=== PATIENT | male | born 1970 | race Caucasian/White ===

== ENCOUNTER → 2020-08-20 14:34 | Outpatient (CLI) | payer BC, SELFPAY ==
--- NOTE | ~2020-08-20 | XR_ITS ---
EXAMINATION: XR hand LT 2V DATE: 08/20/2020 14:47 INDICATION: Cellulitis with erythema and posterior left hand pain. TECHNIQUE: Posteroanterior and lateral views of the left hand were obtained. COMPARISON: None. FINDINGS: Alignment is normal. No fracture. Joint spaces are normal. No cortical erosions or periosteal reactio n. Nonspecific soft tissue swelling which appears centered dorsal to the head of the third metacarpal . No soft tissue gas or radiopaque foreign bodies. IMPRESSION: 1. No osseous abnormality. Reviewed, dictated and finalized at location B. IMPRESSION: 1. No osseous abnormality.
== END ==
PROVIDERS: PCP Nurse Practitioner Family; Visit Provider Nurse Practitioner Family
DX: L03.119 Cellulitis of unspecified part of limb (principal)
CPT/HCPCS: 73120

== ENCOUNTER 2023-04-24 00:51 | Day surgery (SDC) | payer BC, SELFPAY ==
[2023-04-10 10:17] VITALS: BMI 39.2
--- NOTE | 2023-04-21 10:18 | SUR.PREOP ---
Patient called regarding upcoming procedure. Reviewed preop instructions, appointment times, and procedure prep.
--- NOTE | 2023-04-23 20:21 | PM.HPGS ---
History of Present Illness History of Present Illness Consent: Risks, benefits, and alternatives have been discussed and questions answered. Patient agrees to proceed with procedure. Chief complaint: neoplasm screening Narrative: Luis Antonio Us is a 53 year old male who is referred for colon cancer screening. Review of Systems Review of Systems: All systems reviewed & are unremarkable except as noted in HPI and below PMFSH Past Medical History Medical History Asthma BMI 37.0-37.9, adult BMI 38.0-38.9,adult Cellulitis and abscess of leg Dietary counseling and surveillance (02/08/18) Eczema Erectile dysfunction Nocturia Rash Surgical History Surgical History No history of previous surgery Family History Family History Father Hypertension Family history of diabetes mellitus in first degree relative Family history of coronary artery disease Tobacco abuse Mother No problems noted. Sibling No problems noted. Social History Social History Smoking status: Never smoker Second hand tobacco smoke exposure: Yes Alcohol intake: current Substance use: never Substance use type: does not use Lack of Transportation: No Lack of Food: Never True Current Housing: I Have Housing Concerned About Future Housing: No Difficulty Paying Gas/Electric Bills: No Difficulty Paying for Meds: No Currently Unemployed: No Education: Trade/Vocational Certificate Difficulty w/ Childcare or Family Care: No Living arrangements: other Additional living arrangements comments: with sp Occupation/Education: occupation Additional occupation/education comments: [employer] Gender identity (if verbalized by the patient): Male Meds Home Medications and Allergies Home Medications Medication Instructions Recorded Confirmed Type albuterol sulfate 90 mcg/actuation 1 puff inhalation Q4H PRN sob 08/12/20 04/24/23 History aerosol inhaler (ProAir HFA) mometasone-formoterol HFA 100 2 puff inhalation Q12H 08/12/20 04/24/23 History mcg-5 mcg/actuation aerosol inhaler (Dulera) dupilumab 300 mg/2 mL subcutaneous 300 mg subcut .every 2 weeks 12/13/22 04/24/23 History pen injector (Dupixent) epinephrine 0.3 mg/0.3 mL 0.3 mg IM ONCE 12/13/22 04/24/23 History injection, auto-injector latanoprost 0.005 % eye drops 1 drp EACH EYE QPM 12/13/22 04/24/23 History lifitegrast 5 % eye drops in a 1 drp EACH EYE BID 12/13/22 04/24/23 History dropperette (Xiidra) Allergies Allergy/AdvReac Type Severity Reaction Status Date / Time sulfamethizole Allergy Unknown Hives Verified 04/24/23 10:42 trimethoprim Allergy Unknown Hives Verified 04/24/23 10:42 Exam Const: General: alert Orientation/consciousness: patient oriented x3 Resp: Auscultation: clear to auscultation bilaterally Cardio: Rhythm: regular rhythm GI: GI Palp: Yes Soft to palpation and No Tenderness to palpation present (GI) Neuro: General: patient oriented x3 Assessment and Plan Assessment and plan (1) Colon cancer screening: Code(s): Z12.11 - Encounter for screening for malignant neoplasm of colon Status: Acute Assessment and Plan: Colonoscopy with possible biopsy or polypectomy or cautery or injection of substances.
[2023-04-24 10:35] VITALS: BP 144/91; PULSE 91; RESP 16; TEMP 36.5; O2SAT 99; BMI 39.5
--- NOTE | 2023-04-24 10:55 | WPDANESEPPF ---
Anes - Initial Pre Proc Eval Procedure: Operation Date: 04/24/23 11:30 Proposed Procedures p Screening Colonoscopy - Amadou Carnes MD Date/Time: 04/24/23 10:55 Surgeon: Amadou Carnes MD Pre Op Diagnosis: neoplasm screening Patient Data Age: 53 Gender: M Height: 1.7 m Weight: 114.5 kg Last Vital Signs Temp 97.7 F 04/24/23 10:35 Pulse 91 04/24/23 10:35 Resp 16 04/24/23 10:35 BP 144/91 H 04/24/23 10:35 Pulse Ox 99 04/24/23 10:35 O2 Del Method Room Air 04/24/23 10:35 Allergies Allergy/AdvReac Type Severity Reaction Status Date / Time sulfamethizole Allergy Unknown Hives Verified 04/24/23 10:42 trimethoprim Allergy Unknown Hives Verified 04/24/23 10:42 Home Medications Medication Instructions Recorded Confirmed Type albuterol sulfate 90 mcg/actuation 1 puff inhalation Q4H PRN sob 08/12/20 04/24/23 History aerosol inhaler (ProAir HFA) mometasone-formoterol HFA 100 2 puff inhalation Q12H 08/12/20 04/24/23 History mcg-5 mcg/actuation aerosol inhaler (Dulera) dupilumab 300 mg/2 mL subcutaneous 300 mg subcut .every 2 weeks 12/13/22 04/24/23 History pen injector (Dupixent) epinephrine 0.3 mg/0.3 mL 0.3 mg IM ONCE 12/13/22 04/24/23 History injection, auto-injector latanoprost 0.005 % eye drops 1 drp EACH EYE QPM 12/13/22 04/24/23 History lifitegrast 5 % eye drops in a 1 drp EACH EYE BID 12/13/22 04/24/23 History dropperette (Xiidra) Patient hx anesthesia problems: none Family hx anesthesia problems: none Results Review: All pre-operative results and documents have been reviewed as part of the pre-operative evaluation. [facility] Past Medical History Medical History (Updated 04/23/23 @ 20:21 by Amadou Carnes MD) Asthma BMI 37.0-37.9, adult BMI 38.0-38.9,adult Cellulitis and abscess of leg Dietary counseling and surveillance (02/08/18) Eczema Erectile dysfunction Nocturia Rash Surgical History Surgical History No history of previous surgery Family History Family History Father Hypertension Family history of diabetes mellitus in first degree relative Family history of coronary artery disease Tobacco abuse Mother No problems noted. Sibling No problems noted. Social History Social History Smoking status: Never smoker Second hand tobacco smoke exposure: Yes Alcohol intake: current Substance use: never Substance use type: does not use Lack of Transportation: No Lack of Food: Never True Current Housing: I Have Housing Concerned About Future Housing: No Difficulty Paying Gas/Electric Bills: No Difficulty Paying for Meds: No Currently Unemployed: No Education: Trade/Vocational Certificate Difficulty w/ Childcare or Family Care: No Living arrangements: other Additional living arrangements comments: with sp Occupation/Education: occupation Additional occupation/education comments: [employer] Gender identity (if verbalized by the patient): Male Anes - Eval Final PreProcedure Day of Procedure 04/24/23 10:55 Patient weight: morbidly obese Airway: Mallampati scale class II ASA classification: III Anesthesia type and monitoring: general GIVS and standard monitoring Results Review: All pre-operative results and documents have been reviewed as part of the pre-operative evaluation. Informed Consent: The patient's anesthetic plan and its attendant risks and benefits were discussed with the patient/family/POA. Questions were solicited and answers provided to the satisfaction of the patient/family/POA.
[2023-04-24] MEDS: LACTATED RINGERS 1,000 ML 150 ML IV CONT (10:56)
[2023-04-24 11:48] VITALS: BP 116/97; PULSE 77; RESP 17; O2SAT 97
[2023-04-24 11:58] VITALS: BP 125/79; PULSE 67; RESP 17; O2SAT 98
[2023-04-24 12:08] VITALS: BP 122/74; PULSE 67; RESP 20; O2SAT 98
== END 2023-04-24 12:10 | disposition home or self-care (01) ==
PROVIDERS: PCP Family Medicine; Visit Provider Internal Medicine Gastroenterology
PROC: 0DJD8ZZ Inspection of Lower Intestinal Tract, Via Natural or Artificial Opening Endoscopic (ICD-10-PCS; CPT 45378; principal; 2023-04-24 11:30)
DX: Z12.11 Encounter for screening for malignant neoplasm of colon (principal); J45.909 Unspecified asthma, uncomplicated; E66.01 Morbid (severe) obesity due to excess calories; Z68.39 Body mass index [BMI] 39.0-39.9, adult; Z79.51 Long term (current) use of inhaled steroids; Z79.85 Long-term (current) use of injectable non-insulin antidiabetic drugs; Z82.49 Family history of ischemic heart disease and other diseases of the circulatory system
CPT/HCPCS: 45378; J2704; J7120

== ENCOUNTER → 2023-07-13 08:47 | Outpatient (CLI) | payer BC, SELFPAY ==
--- NOTE | ~2023-07-13 | XR_ITS ---
EXAMINATION: XR elbow LT min 3V DATE: 07/13/2023 09:17 INDICATION: Left elbow pain TECHNIQUE: Anteroposterior, two oblique and lateral views of the left elbow were obtained. COMPARISON: None. FINDINGS: Alignment is normal. No fracture or joint effusion. Mild osteoarthritis at the left elbow mild nonuni form joint space narrowing at the ulnotrochlear articulation. Soft tissues are unremarkable. IMPRESSION: 1. Mild osteoarthritis at the left elbow. Reviewed, dictated and finalized at location A. WORK[employer] FOREM[employer]
--- NOTE | ~2023-07-13 | XR_ITS ---
EXAMINATION: XR shoulder LT min 2V DATE: 07/13/2023 09:17 INDICATION: Left shoulder pain TECHNIQUE: AP internally and externally rotated, AP oblique externally rotated and axillary views of the left shoulder were obtained. COMPARISON: None FINDINGS: Normal alignment. No fracture. Glenohumeral joint is normal. Acromioclavicular joint is normal. Soft tissues are unremarkable. Visualized portion of the left lung are clear. IMPRESSION: Negative left shoulder radiographs. Reviewed, dictated and finalized at location A. [employer]ENT[employer]
== END ==
PROVIDERS: PCP Nurse Practitioner Adult Health; Visit Provider Nurse Practitioner Adult Health
DX: M25.512 Pain in left shoulder (principal); M25.522 Pain in left elbow; M19.022 Primary osteoarthritis, left elbow
CPT/HCPCS: 73030; 73080